=== PATIENT | male | born 1970 | race Caucasian/White ===

== ENCOUNTER → 2017-06-12 | Outpatient (CLI) | payer BC ==
--- NOTE | 2017-06-12 11:48 | RAD ---
Examination: Chest, PA and lateral views History: SOB, hypertension Findings: Normal heart size, mild aortic dilatation, clear lungs and pleural spaces. There is no evid ence for CHF or pneumonia. Impression: No acute disease. Relative prominence of the thoracic aorta for age is consistent with hy pertension history. Reported By:
== END ==
LOC: RAD 11:08
PROVIDERS: ATTEND Nurse Practitioner Family
DX: R06.02 Shortness of breath (principal)
CPT/HCPCS: 71020

== ENCOUNTER → 2017-07-02 | Outpatient (CLI) | payer BC ==
[~2017-07-02] MED LIST: NS 100 ML IV 100 ML IV ONE
--- NOTE | 2017-07-04 11:03 | CT ---
HISTORY: Wheezing, shortness of breath, cough Study: CT chest with IV contrast Comparison: Chest x-ray done 06/12/2017. Technique: Multiple axial images of the chest were obtained from the thoracic inlet to the upper abdo men during the administration of IV contrast. Coronal and sagittal images are also reviewed. Findings: The mediastinum does not demonstrate significant pathological lymphadenopathy. There is no pericardi al effusion observed. The thoracic aorta is normal in its contour without evidence for aneurysmal di latation. There is mild ectasia of the ascending aorta which measures 4.09 cm in AP diameter. This is likely to hypertension. The central pulmonary arterial system does not demonstrate central filling d efects to suggest pulmonary emboli. Evaluation of the lung parenchyma fails to demonstrate focal consolidation or effusion. No pulmonary nodule or mass can be identified. The bony thorax is unremarkable in its appearance. The visualize d portions of the upper abdomen are grossly unremarkable. IMPRESSION: Mild ectasia of the ascending aorta, likely due to hypertension. No evidence of aneurysm is seen. No pulmonary embolus. No evidence of infiltrate, adenopathy, pleural fluid or pulmonary nodule. Reported By:
== END | disposition home or self-care (01) | DRG 204 ==
LOC: RAD 09:08
PROVIDERS: ATTEND Nurse Practitioner Family
DX: R05 Cough (principal); I77.819 Aortic ectasia, unspecified site
CPT/HCPCS: 71260; A4222

== ENCOUNTER 2017-07-10 14:05 | Inpatient (IN) | payer BC ==
--- NOTE | 2017-07-10 14:25 | DR.GENAD ---
HPI - PCP Primary Care Physician: TAMARA - HPI Comment HPI Comment: SYMTOMS GETTING WORSE. NO FEVER. MILD COUGHING AND CHEST PAIN PRESENT. - Complaint/Symptoms Chief Complaint Doctors Comments: INCREASING SOB AND FATIGUE WITH OXYGEN DESATURATION TIMES FEW WEEKS. Chief Complaint:: SOB,COUGH, WHEEZING, CP Self Treatment fo Chief Complaint: WORSENING THIS WEEK - Nurses notes reviewed Nurses Notes Review: Yes - Source History Provided: Patient - Mode of Arrival Mode of Arrival: Ambulatory - Timing Onset of Chief Complaint: 04/11/17 Came on: Suddenly - Duration Duration: Constant Duration: Weeks - Severity Severity: Moderate PMH - PMH Past Medical History: Yes Past Medical History: Hypertension Past Surgical History: No - Family History History of Family Medical Conditions: Yes Family Medical History: Hypertension - Social History Does patient currently use any type of tobacco product: No Have you used tobacco products in the last 12 months: No Type of Tobacco Use: None Does any household member use tobacco: No Alcohol Use: Rarely Do you use any recreational Drugs:: No Lives With: Family Lives Where: Home - infectious screening In the last 2 months have you had wt loss of >10#?: NO Have you had fever, night sweats or hemotysis?: No Have you traveled outside the country in the last 6 months?: No Isolation: Standard ROS - Review of Systems Constitutional: Weakness, Fatigue. negative: Chills, Fever Eyes: No Symptoms Reported. negative: Eye Pain, Discharge ENTM: Nose Congestion. negative: Ear Pain, Nose Discharge, Throat Pain Respiratoy: Non-Productive Cough, Short of Breath, Wheezing. negative: Hemoptysis Cardiovascular: Chest Pain, Edema Gastrointestinal/Abdominal: No Symptoms Reported. negative: Abdominal Pain, Diarrhea, Nausea, Vomiting Genitourinary: negative: Dysuria, Frequency, Hematuria Neurological: Weakness, Dizziness. negative: Headache Musculoskeletal: Back Pain, Muscle Pain Integumentary: No Symptoms Reported Hematologic/Lymphatic: No Symptoms Reported Endocrine: No Symptoms Reported All Other Systems: Reviewed and Negative PE - Vital Signs Vitals: Temperature 98.4 F Pulse Rate [Right Brachial] 103 Pulse Rate 105 Respiratory Rate 20 Blood Pressure [Left Arm] 153/93 Blood Pressure 163/99 O2 Sat by Pulse Oximetry 94 - General Limitations: No Limitations General Appearance: Alert - Head Head Exam: Normal Inspection - Eyes Eye exam: Normal Appearance - ENT ENT Exam: Normal External Ear Exam External Ear Exam: Normal External Inspection TM/Canal Exam: Bilateral Normal Nose Exam: Normal Nose Exam Mouth Exam: Normal Inspection Throat Exam: Normal Inspection - Neck Neck Exam: Trachea Midline - Chest Chest Inspection: Symmetric Chest Wall Rise - Respiratory Respiratory Exam: Respiratory Distress Respiratory Exam: Bilateral Wheezing, Bilateral Rhonchi, Upper Wheezing, Upper Rhonchi, Lower Wheezing, Lower Rhonchi - Cardiovascular Cardiovascular Exam: Regular Rate, Normal Rhythm - Abdominal Exam Abdominal Exam: Normal Inspection, Normal Bowel Sounds. negative: Tenderness - Extremities Extremities Exam: Edema - Back Back Exam: Normal Inspection - Neurologic Neurological Exam: Alert, Oriented X3 - Psychiatric Psychiatric Exam: Normal Affect, Normal Mood - Skin Skin Exam: Normal Color MDM - Additional Information Additional Information Obtained From: Family - Differential Diagnosis Differential Diagnosis: CHF, PNEUMONIA, HYOXIA, CHEST PAIN, Course - Treatment Treatment: SEE ORDERS. - Education/Counseling Education/Counseling: Patient, Family, Education Educated On: Treatment, Diagnosis, Needs for Follow Up ROR - Labs Reviewed Laboratory Results Reviewed?: Yes Result Diagrams: 07/11/17 05:10 07/11/17 05:10 Laboratory: 07/10/17 17:43 Sputum - Expectorated Sputum Sputum Culture - Final 07/10/17 17:43 Sputum - Expectorated Sputum - Final WBC 7.8 X10^3/uL (3.6-10.0) 07/11/17 05:10 RBC 5.00 X10^6/uL (4.7-6.0) 07/11/17 05:10 Hgb 15.1 g/dL (13.5-18.0) 07/11/17 05:10 Hct 43.7 % (42.0-54.0) 07/11/17 05:10 MCV 87.3 fL (80.0-100.0) 07/11/17 05:10 MCH 30.1 pg (27.0-34.0) 07/11/17 05:10 MCHC 34.4 g/dL (33.0-35.0) 07/11/17 05:10 RDW 13.7 % (11.6-16.5) 07/11/17 05:10 Plt Count 320 X10^3/uL (150.0-450.0) 07/11/17 05:10 MPV 7.6 fL (7.4-11.0) 07/11/17 05:10 Neut % 89.7 % (42.0-75.0) H 07/11/17 05:10 Lymph % 9.1 % (21.0-51.0) L 07/11/17 05:10 Bartholomew % 1.1 % (0.0-13.0) 07/11/17 05:10 Eos % 0.0 % (0.9-2.9) L 07/11/17 05:10 Baso % 0.1 % (0.2-1.0) L 07/11/17 05:10 Neut # 7.0 x10^3/uL (2.2-4.8) H 07/11/17 05:10 Lymph # 0.7 X10^3/uL (1.3-2.9) L 07/11/17 05:10 Bartholomew # 0.1 x10^3/uL (0.3-0.8) L 07/11/17 05:10 Eos # 0.0 x10^3/uL (0.0-0.2) 07/11/17 05:10 Baso # 0.0 X10^3/uL (0.0-0.1) 07/11/17 05:10 Absolute Nucleated RBC 0.0 /100WBC 07/11/17 05:10 D-Dimer < 100 ng/mL (0-400) 07/10/17 14:37 Sample Site Lr 07/10/17 16:01 ABG pH 7.420 (7.35-7.45) 07/10/17 16:01 ABG pCO2 43.0 mmHg (35.0-45.0) 07/10/17 16:01 ABG pO2 58.0 mmHg (80.0-100.0) L 07/10/17 16:01 ABG HCO3 27.9 mmol/L (22-26) H 07/10/17 16:01 ABG O2 Saturation 90.0 % (90-100) 07/10/17 16:01 ABG Base Excess 3.0 mmol/L (-2.0-2.0) H 07/10/17 16:01 Jorge Test Pos 07/10/17 16:01 A-a Gradient 38.0 mmHg 07/10/17 16:01 FiO2 21.000 07/10/17 16:01 Blood Gas Comments Pt [email or web address] [email or web address]/gb 07/10/17 16:01 Sodium 137 mmol/L (136-145) 07/11/17 05:10 Corrected Sodium 138 mmol/L (136-145) 07/11/17 05:10 Potassium 4.0 mmol/L (3.5-5.1) 07/11/17 05:10 Chloride 101 mmol/L (98-107) 07/11/17 05:10 Carbon Dioxide 23.4 mmol/L (21-32) 07/11/17 05:10 BUN 12 mg/dL (7-18) 07/11/17 05:10 Creatinine 0.92 mg/dL (0.70-1.30) 07/11/17 05:10 Est GFR (MDRD) Af Amer > 60 (>60) 07/11/17 05:10 Est GFR (MDRD) Non-Af > 60 (>60) 07/11/17 05:10 Glucose 142 mg/dL (65-99) H 07/11/17 05:10 Calcium 8.9 mg/dL (8.5-10.1) 07/11/17 05:10 Corrected Calcium TNP 07/11/17 05:10 Total Bilirubin 0.30 mg/dL (0.2-1.0) 07/11/17 05:10 AST 17 Units/L (15-37) 07/11/17 05:10 ALT 40 Units/L (12-78) 07/11/17 05:10 Alkaline Phosphatase 110 Units/L (46-116) 07/11/17 05:10 Creatine Kinase 88 Units/L (39-308) 07/11/17 05:10 CK-MB (CK-2) < 1.0 ng/mL (0-4.0) 07/11/17 05:10 CK/CKMB % Calc 1.1 % (<4) 07/11/17 05:10 Troponin I < 0.02 ng/mL (0-1.5) 07/11/17 05:10 B-Natriuretic Peptide 7.3 pg/mL (0-79) 07/10/17 14:37 Total Protein 7.5 g/dL (6.4-8.2) 07/11/17 05:10 Albumin 3.4 g/dL (3.4-5.0) 07/11/17 05:10 Globulin 4.1 g/dL (2.5-4.5) 07/11/17 05:10 Albumin/Globulin Ratio 0.8 Ratio (1.1-2.1) L 07/11/17 05:10 Triglycerides 44 mg/dL (0-150) 07/11/17 05:10 Cholesterol 172 mg/dL (0-200) 07/11/17 05:10 LDL Cholesterol, Calc 100 mg/dL (0-100) 07/11/17 05:10 HDL Cholesterol 63 mg/dL (40-60) H 07/11/17 05:10 Cholesterol/HDL Ratio 2.7 (0.0-5.0) 07/11/17 05:10 Amylase 54 Units/L (25-115) 07/10/17 14:37 Lipase 143 Units/L (73-393) 07/10/17 14:37 Specimen Type Clean catch urine 07/10/17 19:34 Urine Color Yellow (YELLOW) 07/10/17 19:34 Urine Appearance Clear (CLEAR) 07/10/17 19:34 Urine pH 7.0 (5.0 - 8.0) 07/10/17 19:34 Ur Specific [place] 1.005 (1.000-1.030) 07/10/17 19:34 Urine Protein 1+ (NEGATIVE) 07/10/17 19:34 Urine Glucose (UA) Negative (NEGATIVE) 07/10/17 19:34 Urine Ketones 2+ (NEGATIVE) 07/10/17 19:34 Urine Occult Blood Negative (NEGATIVE) 07/10/17 19:34 Urine Nitrite Negative (NEGATIVE) 07/10/17 19:34 Urine Bilirubin Negative (NEGATIVE) 07/10/17 19:34 Urine Urobilinogen Normal (NORMAL) 07/10/17 19:34 Ur Leukocyte Esterase Negative (NEGATIVE) 07/10/17 19:34 Urine RBC 0-3 /HPF (NEGATIVE) 07/10/17 19:34 Urine WBC 0-3 /HPF (NEGATIVE) 07/10/17 19:34 Ur Squamous Epith Cells Rare /HPF (NEGATIVE) 07/10/17 19:34 Urine Bacteria Negative /HPF (NEGATIVE) 07/10/17 19:34 Ur Culture Indicated? No/not indicated 07/10/17 19:34 - XRAY XRAY Interpreted by: Radiologist XRAY Findings: REPORT DISCUSS WITH PATIENT AND FAMILY. - EKG Rhythm: NSR (EKG NOTED.) - Diagnosis Discharge Problem: Hypoxia, Respiratory distress Chest pain Qualifiers: Chest pain type: precordial pain Qualified Code(s): R07.2 - Precordial pain - Discharge Plan Disposition: ADMITTED INPATIENT Condition: Stable - Follow ups/Referrals - Instructions
[2017-07-10] MEDS ORDERED: NITROSTAT SL PRN (14:40)
[2017-07-10] MEDS ORDERED: MORPHINE SULFATE INJ 4 MG IVP ONE (14:40)
[2017-07-10] MEDS ORDERED: ASPIRIN 81 MG CHEWTAB PO ONE (14:41)
[2017-07-10] MEDS ORDERED: ZOFRAN INJ 4 MG VIAL IVP ONE (14:42)
--- NOTE | 2017-07-10 14:47 | RAD ---
Examination: Portable AP chest History: SOB Comparison reference 06/12/2017. Findings: Continued normal heart size with clear lungs and pleural spaces. Impression: No change; no acute disease. Reported By:
[2017-07-10 14:51] LABS: BASOPHILS # (AUTO) 0.1 X10^3/uL (0.0-0.1); EOSINOPHILS # (AUTO) 0.9 x10^3/uL (0.0-0.2); EOSINOPHILS % (AUTO) 8.2 % (0.9-2.9); HEMATOCRIT 43.9 % (42.0-54.0); HEMOGLOBIN 15.1 g/dL (13.5-18.0); LYMPHOCYTES # (AUTO) 1.7 X10^3/uL (1.3-2.9); LYMPHOCYTES % (AUTO) 16.2 % (21.0-51.0); MEAN CORPUSCULAR HGB CONC 34.5 g/dL (33.0-35.0); MEAN CORPUSCULAR VOLUME 87.1 fL (80.0-100.0); MEAN PLATELET VOLUME 7.2 fL (7.4-11.0); MONOCYTES # (AUTO) 1.1 x10^3/uL (0.3-0.8); MONOCYTES % (AUTO) 10.5 % (0.0-13.0); NEUTROPHILS # (AUTO) 6.8 x10^3/uL (2.2-4.8); NEUTROPHILS % (AUTO) 64.1 % (42.0-75.0); PLATELET COUNT 323 X10^3/uL (150.0-450.0); RED BLOOD COUNT 5.05 X10^6/uL (4.7-6.0); WHITE BLOOD COUNT 10.6 X10^3/uL (3.6-10.0)
[2017-07-10] MEDS ORDERED: DUONEB 0.5 MG/3 MG NEB ONE (14:56)
[2017-07-10] MEDS ORDERED: SOLU-Medrol 125 MG VIAL IVP ONE (14:56)
[2017-07-10] MEDS ORDERED: ASPIRIN 81 MG CHEWTAB ONE (15:11)
[2017-07-10] MEDS ORDERED: SOLU-Medrol 125 MG VIAL ONE (15:11)
[2017-07-10 15:12] LABS: B-TYPE NATRIURETIC PEPTIDE 7.3 pg/mL (0-79)
[2017-07-10] MEDS ORDERED: MORPHINE SULFATE INJ 4 MG ONE (15:12)
[2017-07-10] MEDS ORDERED: ZOFRAN INJ 4 MG VIAL ONE (15:13)
[2017-07-10 15:17] LABS: BLOOD UREA NITROGEN 11 mg/dL (7-18); CALCIUM 8.5 mg/dL (8.5-10.1); CARBON DIOXIDE 25.3 mmol/L (21-32); CHLORIDE 103 mmol/L (98-107); SODIUM 137 mmol/L (136-145); TROPONIN I < 0.02 ng/mL (0-1.5); eGFR BLACK RACES > 60 (>60); eGFR NON BLACK RACES > 60 (>60)
[2017-07-10 15:31] LABS: ALANINE AMINOTRANSFERASE 43 Units/L (12-78); ALBUMIN 3.4 g/dL (3.4-5.0); ALKALINE PHOSPHATASE 113 Units/L (46-116); AMYLASE 54 Units/L (25-115); ASPARTATE AMINO TRANSFERASE 23 Units/L (15-37); CKMB % 0.8 % (<4); CREATINE KINASE 140 Units/L (39-308); CREATINE KINASE MB 1.1 ng/mL (0-4.0); LIPASE 143 Units/L (73-393); TOTAL PROTEIN 7.3 g/dL (6.4-8.2)
[2017-07-10 16:06] LABS: ABG ALLEN TEST POS; ABG HCO3 27.9 mmol/L (22-26)
[2017-07-10] MEDS ORDERED: NS 100 ML IV 100 ML IV ONE (17:36)
[2017-07-10 17:38] LABS: CKMB % 0.9 % (<4); CREATINE KINASE 143 Units/L (39-308); CREATINE KINASE MB 1.3 ng/mL (0-4.0); TROPONIN I < 0.02 ng/mL (0-1.5)
--- NOTE | 2017-07-10 18:10 | CT ---
History: Shortness of breath and hypoxia Study: CTA chest utilizing 75 mL Omnipaque 350. Sagittal and coronal MIPS of the pulmonary arteries w ere displayed. Findings: The lungs are clear. There is no pleural effusion. No pulmonary embolus is demonstrated. Th ere is no adenopathy. There is elevation of the left hemidiaphragm. There is no significant bony abno rmality. The visualized upper abdomen is unremarkable. Impression: No evidence for pulmonary embolus or acute disease Reported By:
[2017-07-10 19:42] LABS: BILIRUBIN,URINE NEGATIVE (NEGATIVE); BLOOD/HEMOGLOBIN,URINE NEGATIVE (NEGATIVE); GLUCOSE, URINE NEGATIVE (NEGATIVE); KETONES,URINE 2+ (NEGATIVE); LEUKOCYTE ESTERASE ,URINE NEGATIVE (NEGATIVE); NITRITES,URINE NEGATIVE (NEGATIVE); PROTEIN,URINE 1+ (NEGATIVE); UROBILINOGEN,URINE NORMAL (NORMAL)
[2017-07-10 19:56] LABS: APPEARANCE,URINE CLEAR (CLEAR); BACTERIA,URINE NEGATIVE /HPF (NEGATIVE); COLOR,URINE YELLOW (YELLOW); RBC,URINE 0-3 /HPF (NEGATIVE); SQUAMOUS EPITHELIAL CELL,UR RARE /HPF (NEGATIVE)
[2017-07-10 20:18] VITALS: BMI 32.4
[2017-07-10] MEDS ORDERED: FLUVIRIN IM ONE (20:18)
[2017-07-10] MEDS: LEVAQUIN PREMIX IV 500 MG 500 MG/100 ML BAG IV SCH (21:12)
[2017-07-10] MEDS: SOLU-Medrol 40 MG VIAL IVP SCH (21:12)
[2017-07-10] MEDS: NS 1000 ML 1,000 ML IV SCH (21:12)
[2017-07-10] MEDS: DUONEB 0.5 MG/3 MG NEB SCH (21:18)
[2017-07-10 23:37] LABS: CKMB % 0.9 % (<4); CREATINE KINASE 118 Units/L (39-308); CREATINE KINASE MB < 1.0 ng/mL (0-4.0); TROPONIN I < 0.02 ng/mL (0-1.5)
[2017-07-11] MEDS: DUONEB 0.5 MG/3 MG NEB SCH ×6 (01:06→21:43)
[2017-07-11] MEDS: SOLU-Medrol 40 MG VIAL IVP SCH ×3 (06:32→21:34)
[2017-07-11 06:34] LABS: BASOPHILS % (AUTO) 0.1 % (0.2-1.0); HEMATOCRIT 43.7 % (42.0-54.0); HEMOGLOBIN 15.1 g/dL (13.5-18.0); LYMPHOCYTES # (AUTO) 0.7 X10^3/uL (1.3-2.9); LYMPHOCYTES % (AUTO) 9.1 % (21.0-51.0); MEAN CORPUSCULAR HEMOGLOBIN 30.1 pg (27.0-34.0); MEAN CORPUSCULAR HGB CONC 34.4 g/dL (33.0-35.0); MEAN CORPUSCULAR VOLUME 87.3 fL (80.0-100.0); MEAN PLATELET VOLUME 7.6 fL (7.4-11.0); MONOCYTES # (AUTO) 0.1 x10^3/uL (0.3-0.8); MONOCYTES % (AUTO) 1.1 % (0.0-13.0); NEUTROPHILS % (AUTO) 89.7 % (42.0-75.0); PLATELET COUNT 320 X10^3/uL (150.0-450.0); RED CELL DISTRIBUTION WIDTH 13.7 % (11.6-16.5); WHITE BLOOD COUNT 7.8 X10^3/uL (3.6-10.0)
[2017-07-11 06:44] LABS: CKMB % 1.1 % (<4); CREATINE KINASE 88 Units/L (39-308); CREATINE KINASE MB < 1.0 ng/mL (0-4.0); TROPONIN I < 0.02 ng/mL (0-1.5)
[2017-07-11 07:43] LABS: ALANINE AMINOTRANSFERASE 40 Units/L (12-78); ALBUMIN 3.4 g/dL (3.4-5.0); ALKALINE PHOSPHATASE 110 Units/L (46-116); ASPARTATE AMINO TRANSFERASE 17 Units/L (15-37); BLOOD UREA NITROGEN 12 mg/dL (7-18); CALCIUM 8.9 mg/dL (8.5-10.1); CARBON DIOXIDE 23.4 mmol/L (21-32); CHLORIDE 101 mmol/L (98-107); CHOL/HDL RATIO 2.7 (0.0-5.0); CHOLESTEROL 172 mg/dL (0-200); COR NA(FOR HYPERGLY) 138 mmol/L (136-145); CREATININE 0.92 mg/dL (0.70-1.30); HDL CHOLESTEROL 63 mg/dL (40-60); SODIUM 137 mmol/L (136-145); TOTAL PROTEIN 7.5 g/dL (6.4-8.2); TRIGLYCERIDES 44 mg/dL (0-150); eGFR BLACK RACES > 60 (>60); eGFR NON BLACK RACES > 60 (>60)
[2017-07-11] MEDS: NS 1000 ML 1,000 ML IV SCH ×2 (08:20→21:39)
[2017-07-11] MEDS: LEVAQUIN PREMIX IV 500 MG 500 MG/100 ML BAG IV SCH (10:01)
[2017-07-11] MEDS: BROVANA IN SCH ×2 (10:52→21:43)
[2017-07-11] MEDS: PULMICORT NEB TX 0.5 MG NEB SCH ×2 (10:53→21:43)
[2017-07-11] MEDS: PEPCID 20 MG IV PREMIX* 20 MG/50 ML BAG IV SCH ×2 (11:56→21:34)
[2017-07-11] MEDS ORDERED: TUSSIONEX PENNKINETIC SUSP PO PRN (13:49)
--- NOTE | 2017-07-11 13:54 | DR.H&P ---
H&P - History & Physical for Day of: H&P Date: 07/10/17 - Chief Complaint Chief Complaint: CP,SOB - Allergies Allergies/Adverse Reactions: Allergies Allergy/AdvReac Type Severity Reaction Status Date / Time Cephalosporins Allergy Severe ANAPHALEXIS Verified 07/10/17 14:06 REACTION - History of Present Illness History of Present Illness: PATIENT IS A 47-YEAR-OLD WHITE MALE WHO WAS AN er ADMISSION AFTER PRESENTING WITH COMPLAINTS OF CHEST PAIN AND SEVERE SHORTNESS OF BREATH. pATIENT STATES HE'S HAD INCREASED COUGH CHEST CONGESTION AND WHEEZING ON AND OFF FOR APPROXIMATELY THE LAST 2 MONTHS. pATIENT STATES HE HAS TAKEN MULTIPLE ROUNDS OF ANTIBIOTICS, BY MOUTH STEROIDS WELL STEROID INJECTIONS AND ANTIBIOTIC INJECTIONS WITHOUT IMPROVEMENT. pATIENT HAD A CHEST X -RAY WELL A ct OF THE CHEST PRIOR TO ARRIVAL TO THE er ON OUTPATIENT BASIS ct REVEALED AN ENLARGED AORTA HOWEVER NEGATIVE FOR ANY PULMONARY DISEASE PROCESSES. pATIENT STATES HE'S BEEN USING RESPIRATORY TREATMENTS AT HOME WELL sYMBICORT INHALER WITHOUT IMPROVEMENT. pATIENT STATES PRESSURE TO CHEST STARTED OVER THE LAST 1-2 DAYS AND BECAME MORE SEVERE. pATIENT DENIES ANY HISTORY OF CORONARY ARTERY DISEASE. pATIENT DOES HAVE A HISTORY OF HYPERTENSION. pATIENT DENIES ANY PAST MEDICAL HISTORY OF ASTHMA OR copd. pATIENT HAS A HISTORY OF gerd AND HAS BEEN ON nEXIUM FOR SEVERAL YEARS WITH NO COMPLAINTS OF RECENT INCREASED. gi SYMPTOMS. pLAN TO ADMIT PATIENT FOR FURTHER EVALUATION OFcHEST PAIN AND RESPIRATORY SYMPTOMS, SERIAL CARDIAC ENZYMES AND ekgS WELL cta OF THE CHEST PRIOR TO ADMISSION TO icu. - Past Medical History Past Medical History: GERD, Hypertension - Past Surgical History Surgical History: Tonsillectomy - Family History Family Medical History: Hypertension - Social History Does patient currently use any type of tobacco product: No Have you used tobacco products in the last 12 months: No Type of Tobacco Use: None Does any household member use tobacco: No Alcohol Use: Rarely Drug Use: None - Medications Home Medications: Albuterol Neb 2.5MG/ 3Ml [Proventil Neb Tx 0.083% 2.5MG/ 3Ml] 1 nebule INH TID PRN 07/10/17 [History Confirmed 07/10/17] Amlodipine Besylate [NORVASC 5 MG *] 1 tab PO DAILY 07/10/17 [History Confirmed 07/10/17] Budesonide-Formoterol [SYMBICORT INH 160/4.5 mcg] 2 puff IN Q12H 07/10/17 [ History Confirmed 07/10/17] Esomeprazole Magnesium [NEXIUM 40 MG *] 1 tab PO DAILY 07/10/17 [History Confirmed 07/10/17] Losartan Potassium [LOSARTAN POTASSIUM 50 MG *] 1 tab PO DAILY 07/10/17 [ History Confirmed 07/10/17] - Review of Systems Constitutional: Weakness Eyes: No Symptoms Reported ENT: No Symptoms Reported Respiratory: Cough, Shortness of Breath, SOB with Excertion, Wheezing Cardiovascular: Chest Pain, Palpitations Gastrointestinal: No Symptoms Reported Genitourinary: No Symptoms Reported Musculoskeletal: No Symptoms Reported Skin: No Symptoms Reported Neurological: No Symptoms Reported - Physical Exam Vital Signs: Temperature 98.2 F Pulse Rate [Right Brachial] 127 Pulse Rate 108 Respiratory Rate 23 Blood Pressure [Left Arm] 155/81 Blood Pressure 163/99 O2 Sat by Pulse Oximetry 93 Oriented: Normal Eyes: Normal Ear: Normal Nose: Normal Throat: Normal Respiratory: Wheezes Throughout Cardiovascular: Tachycardia : Normal Auscultation: Bowel Sounds: Normal Palpation: Normal Tenderness: Normal Skin: Normal Musculoskeletal: Normal Psychiatric: Normal Mood Description: Calm Speech Pattern: Clear, Appropriate - Assessment/Plan (1) Chest pain Qualifiers: Chest pain type: precordial pain Qualified Code(s): R07.2 - Precordial pain Status: Acute Plan: admit patient to ICU, supplemental O2, serial cardiac enzymes and EKGs, resume home medications for blood pressure control, blood pressure monitoring, respiratory consult with with sputum and respiratory treatments, repeat a.m. labs, IV antibiotics and steroids. (2) Hypoxia Status: Acute (3) Respiratory distress Status: Acute
[2017-07-11] MEDS: NORVASC TAB 5 MG PO SCH (13:57)
[2017-07-11] MEDS: NexIUM PO SCH (13:57)
[2017-07-11] MEDS: COZAAR PO SCH (13:57)
--- NOTE | 2017-07-11 13:57 | PCM.PROG ---
Progress Note - Progress Note for Day of Date: 07/11/17 - Subjective Subjective: SOB, CHEST PAIN - Past Medical Family Social History Past Med/Fam/Surg Hx: No changes since H&P Allergies: Allergies Cephalosporins Allergy (Severe, Verified 07/10/17 14:06) ANAPHALEXIS REACTION - Review of Systems ROS: No change since H&P - Vital Signs and I&O's Vital Signs: Temperature 98.2 F Pulse Rate [Right Brachial] 127 Pulse Rate 108 Respiratory Rate 23 Blood Pressure [Left Arm] 155/81 Blood Pressure 163/99 O2 Sat by Pulse Oximetry 93 Intake and Output: Intake & Output 07/09/17 07/10/17 07/11/17 07/12/17 11:59 11:59 11:59 11:59 Intake Total 330 Output Total 1 Balance 329 - Physical Exam Oriented: Normal Eyes: Normal Ear: Normal Nose: Normal Throat: Normal Respiratory: Wheezes Cardiovascular: Tachycardia : Normal Auscultation: Bowel Sounds: Normal Tenderness: Normal Skin: Normal Musculoskeletal: Normal Psychiatric: Normal Mood Description: Calm Speech Pattern: Clear, Appropriate - Laboratory and Diagnostics Result Diagrams: 07/11/17 05:10 07/11/17 05:10 Labs: 07/10/17 22:22 Sputum - Expectorated Sputum Sputum Culture - Preliminary 07/10/17 22:22 Sputum - Expectorated Sputum - Final 07/10/17 17:43 Sputum - Expectorated Sputum Sputum Culture - Final 07/10/17 17:43 Sputum - Expectorated Sputum - Final Laboratory WBC 7.8 X10^3/uL (3.6-10.0) 07/11/17 05:10 RBC 5.00 X10^6/uL (4.7-6.0) 07/11/17 05:10 Hgb 15.1 g/dL (13.5-18.0) 07/11/17 05:10 Hct 43.7 % (42.0-54.0) 07/11/17 05:10 MCV 87.3 fL (80.0-100.0) 07/11/17 05:10 MCH 30.1 pg (27.0-34.0) 07/11/17 05:10 MCHC 34.4 g/dL (33.0-35.0) 07/11/17 05:10 RDW 13.7 % (11.6-16.5) 07/11/17 05:10 Plt Count 320 X10^3/uL (150.0-450.0) 07/11/17 05:10 MPV 7.6 fL (7.4-11.0) 07/11/17 05:10 Neut % 89.7 % (42.0-75.0) H 07/11/17 05:10 Lymph % 9.1 % (21.0-51.0) L 07/11/17 05:10 Hubbard % 1.1 % (0.0-13.0) 07/11/17 05:10 Eos % 0.0 % (0.9-2.9) L 07/11/17 05:10 Baso % 0.1 % (0.2-1.0) L 07/11/17 05:10 Neut # 7.0 x10^3/uL (2.2-4.8) H 07/11/17 05:10 Lymph # 0.7 X10^3/uL (1.3-2.9) L 07/11/17 05:10 Hubbard # 0.1 x10^3/uL (0.3-0.8) L 07/11/17 05:10 Eos # 0.0 x10^3/uL (0.0-0.2) 07/11/17 05:10 Baso # 0.0 X10^3/uL (0.0-0.1) 07/11/17 05:10 Absolute Nucleated RBC 0.0 /100WBC 07/11/17 05:10 D-Dimer < 100 ng/mL (0-400) 07/10/17 14:37 Sample Site Lr 07/10/17 16:01 ABG pH 7.420 (7.35-7.45) 07/10/17 16:01 ABG pCO2 43.0 mmHg (35.0-45.0) 07/10/17 16:01 ABG pO2 58.0 mmHg (80.0-100.0) L 07/10/17 16:01 ABG HCO3 27.9 mmol/L (22-26) H 07/10/17 16:01 ABG O2 Saturation 90.0 % (90-100) 07/10/17 16:01 ABG Base Excess 3.0 mmol/L (-2.0-2.0) H 07/10/17 16:01 Jorge Test Pos 07/10/17 16:01 A-a Gradient 38.0 mmHg 07/10/17 16:01 FiO2 21.000 07/10/17 16:01 Blood Gas Comments Pt [place] [email or web address]/gb 07/10/17 16:01 Sodium 137 mmol/L (136-145) 07/11/17 05:10 Corrected Sodium 138 mmol/L (136-145) 07/11/17 05:10 Potassium 4.0 mmol/L (3.5-5.1) 07/11/17 05:10 Chloride 101 mmol/L (98-107) 07/11/17 05:10 Carbon Dioxide 23.4 mmol/L (21-32) 07/11/17 05:10 BUN 12 mg/dL (7-18) 07/11/17 05:10 Creatinine 0.92 mg/dL (0.70-1.30) 07/11/17 05:10 Est GFR (MDRD) Af Amer > 60 (>60) 07/11/17 05:10 Est GFR (MDRD) Non-Af > 60 (>60) 07/11/17 05:10 Glucose 142 mg/dL (65-99) H 07/11/17 05:10 Calcium 8.9 mg/dL (8.5-10.1) 07/11/17 05:10 Corrected Calcium TNP 07/11/17 05:10 Total Bilirubin 0.30 mg/dL (0.2-1.0) 07/11/17 05:10 AST 17 Units/L (15-37) 07/11/17 05:10 ALT 40 Units/L (12-78) 07/11/17 05:10 Alkaline Phosphatase 110 Units/L (46-116) 07/11/17 05:10 Creatine Kinase 88 Units/L (39-308) 07/11/17 05:10 CK-MB (CK-2) < 1.0 ng/mL (0-4.0) 07/11/17 05:10 CK/CKMB % Calc 1.1 % (<4) 07/11/17 05:10 Troponin I < 0.02 ng/mL (0-1.5) 07/11/17 05:10 B-Natriuretic Peptide 7.3 pg/mL (0-79) 07/10/17 14:37 Total Protein 7.5 g/dL (6.4-8.2) 07/11/17 05:10 Albumin 3.4 g/dL (3.4-5.0) 07/11/17 05:10 Globulin 4.1 g/dL (2.5-4.5) 07/11/17 05:10 Albumin/Globulin Ratio 0.8 Ratio (1.1-2.1) L 07/11/17 05:10 Triglycerides 44 mg/dL (0-150) 07/11/17 05:10 Cholesterol 172 mg/dL (0-200) 07/11/17 05:10 LDL Cholesterol, Calc 100 mg/dL (0-100) 07/11/17 05:10 HDL Cholesterol 63 mg/dL (40-60) H 07/11/17 05:10 Cholesterol/HDL Ratio 2.7 (0.0-5.0) 07/11/17 05:10 Amylase 54 Units/L (25-115) 07/10/17 14:37 Lipase 143 Units/L (73-393) 07/10/17 14:37 Specimen Type Clean catch urine 07/10/17 19:34 Urine Color Yellow (YELLOW) 07/10/17 19:34 Urine Appearance Clear (CLEAR) 07/10/17 19:34 Urine pH 7.0 (5.0 - 8.0) 07/10/17 19:34 Ur Specific [place] 1.005 (1.000-1.030) 07/10/17 19:34 Urine Protein 1+ (NEGATIVE) 07/10/17 19:34 Urine Glucose (UA) Negative (NEGATIVE) 07/10/17 19:34 Urine Ketones 2+ (NEGATIVE) 07/10/17 19:34 Urine Occult Blood Negative (NEGATIVE) 07/10/17 19:34 Urine Nitrite Negative (NEGATIVE) 07/10/17 19:34 Urine Bilirubin Negative (NEGATIVE) 07/10/17 19:34 Urine Urobilinogen Normal (NORMAL) 07/10/17 19:34 Ur Leukocyte Esterase Negative (NEGATIVE) 07/10/17 19:34 Urine RBC 0-3 /HPF (NEGATIVE) 07/10/17 19:34 Urine WBC 0-3 /HPF (NEGATIVE) 07/10/17 19:34 Ur Squamous Epith Cells Rare /HPF (NEGATIVE) 07/10/17 19:34 Urine Bacteria Negative /HPF (NEGATIVE) 07/10/17 19:34 Ur Culture Indicated? No/not indicated 07/10/17 19:34 - Plan (1) Chest pain Status: Acute Qualifiers: Chest pain type: precordial pain Qualified Code(s): R07.2 - Precordial pain Plan: supplemental O2, serial cardiac enzymes and EKG results reviewed with pt and family, resume home medications for blood pressure control, blood pressure monitoring,continue resp therapy, repeat am labs. jet nebs and cxr q am (2) Hypoxia Status: Acute (3) Respiratory distress Status: Acute (4) Bronchitis Status: Acute
[2017-07-12] MEDS: DUONEB 0.5 MG/3 MG NEB SCH ×5 (01:22→16:53)
[2017-07-12] MEDS: SOLU-Medrol 40 MG VIAL IVP SCH ×2 (05:18→14:16)
[2017-07-12 06:02] LABS: BASOPHILS % (AUTO) 0.1 % (0.2-1.0); HEMATOCRIT 41.7 % (42.0-54.0); HEMOGLOBIN 14.3 g/dL (13.5-18.0); LYMPHOCYTES # (AUTO) 0.7 X10^3/uL (1.3-2.9); LYMPHOCYTES % (AUTO) 2.8 % (21.0-51.0); MEAN CORPUSCULAR HEMOGLOBIN 30.1 pg (27.0-34.0); MEAN CORPUSCULAR HGB CONC 34.2 g/dL (33.0-35.0); MEAN PLATELET VOLUME 7.8 fL (7.4-11.0); MONOCYTES % (AUTO) 4.2 % (0.0-13.0); NEUTROPHILS # (AUTO) 23.1 x10^3/uL (2.2-4.8); NEUTROPHILS % (AUTO) 92.9 % (42.0-75.0); PLATELET COUNT 333 X10^3/uL (150.0-450.0); RED BLOOD COUNT 4.74 X10^6/uL (4.7-6.0); WHITE BLOOD COUNT 24.9 X10^3/uL (3.6-10.0)
[2017-07-12 06:27] LABS: ALANINE AMINOTRANSFERASE 31 Units/L (12-78); ALBUMIN 3.2 g/dL (3.4-5.0); ALKALINE PHOSPHATASE 97 Units/L (46-116); ASPARTATE AMINO TRANSFERASE 15 Units/L (15-37); BLOOD UREA NITROGEN 18 mg/dL (7-18); CALCIUM 8.9 mg/dL (8.5-10.1); CARBON DIOXIDE 24.2 mmol/L (21-32); CHLORIDE 103 mmol/L (98-107); COR CA(FOR HYPOALB) 9.5 mg/dL (8.5-10.1); COR NA(FOR HYPERGLY) 140 mmol/L (136-145); CREATININE 1.05 mg/dL (0.70-1.30); SODIUM 139 mmol/L (136-145); TOTAL PROTEIN 7.1 g/dL (6.4-8.2); eGFR BLACK RACES > 60 (>60); eGFR NON BLACK RACES > 60 (>60)
[2017-07-12 07:11] LABS: PLATELET MORPHOLOGY COMMENT NORMAL (NORMAL)
--- NOTE | 2017-07-12 07:50 | CT ---
History: Neck swelling upper airway wheezing. Technique: CT neck with IV contrast. Multiple contiguous axial CT images of the neck were obtained fr om skullbase through the thoracic inlet after IV contrast injection. Sagittal coronal reformatted alexia ges were reconstructed. Automated exposure control (AEC) was utilized to adjust the MA and/or kV acco rding to patient size. Comparison:NONE Findings: There is narrowing of the supraglottic larynx, with soft tissue thickening along the posterior wall s uggesting edema. Mild edema of the vocal cords is suggested. Soft tissue thickening along the posteri or aspect of the supraglottic larynx measures up to 1.4 cm. The residual airway lumen at this level m easures 4 mm in diameter. The epiglottis and the aryepiglottic folds appear normal. There is a small amount of debris noted within the vallecula. Uvula appears mildly thickened The parotid glands and the submandibular glands appear unremarkable. Scattered nonspecific bilateral cervical lymph nodes are seen without soft tissue neck mass is demonstrated. There is mucoperiosteal thickening in the ethmoid air cells. There is diffuse mucoperiosteal thickeni ng in the dominant right sphenoid chamber with mild bony wall thickening suggesting chronic sinusitis . The anterior aspect of the aortic arch is dilated measuring 3.6 cm. The aortic arch has not fully inc luded within the [id number] of the examination. There is moderate multilevel degenerative disc disease throughout the cervical spine. There is a post erior disc osteophyte complex at C4-C5 resulting in severe spinal canal stenosis at this level. Impression: 1. Soft tissue thickening along the posterior wall of the supraglottic larynx with mild thickening of the vocal cords. This results in marked narrowing of the supraglottic airway with a residual lumen o f 4 mm. Clinical correlation is required to ensure a patent airway. Findings may be secondary to a la ryngeal edema, perhaps related to laryngohypopharyngeal reflux or other etiologies, however, a small soft tissue mass is not excluded and direct visualization is recommended. ENT consultation suggested. 2. Mild dilatation of the anterior aortic arch measuring at least 3.6 cm in diameter. The entire aort ic arch is not included within the [id number] of the examination. Consider correlation with contra st-enhanced chest CT for further assessment. 3. Paranasal sinus disease as discussed above with findings suggesting chronic sphenoid sinusitis. 4. Severe spinal canal stenosis at C4-C5. 5. Other findings as above. Reported By:
[2017-07-12] MEDS: PEPCID 20 MG IV PREMIX* 20 MG/50 ML BAG IV SCH (09:30)
[2017-07-12] MEDS: NORVASC TAB 5 MG PO SCH (09:31)
[2017-07-12] MEDS: LEVAQUIN PREMIX IV 500 MG 500 MG/100 ML BAG IV SCH (09:31)
[2017-07-12] MEDS: COZAAR PO SCH (09:31)
[2017-07-12] MEDS: NexIUM PO SCH (09:34)
[2017-07-12] MEDS: PULMICORT NEB TX 0.5 MG NEB SCH (09:44)
[2017-07-12] MEDS: BROVANA IN SCH (09:44)
[2017-07-12] MEDS ORDERED: PROTONIX INJ 40 MG VIAL IVP SCH (12:00)
[2017-07-12] MEDS: LEVSIN/MAALOX/LIDOC VISC PO SCH ×2 (12:24→17:10)
[2017-07-12 17:00] VITALS: BP 125/87
[2017-07-12] MEDS: NS 1000 ML 1,000 ML IV SCH (17:00)
== END 2017-07-12 19:40 | disposition short-term general hospital (02) | DRG 313 ==
LOC: ER 14:09 → ICU 18:15 → OBSVTOIN 18:15
PROVIDERS: ADMIT Internal Medicine; ATTEND Internal Medicine
PROC: 3E0234Z Introduction of Serum, Toxoid and Vaccine into Muscle, Percutaneous Approach (ICD-10-PCS; principal; 2017-07-10)
DX: R07.2 Precordial pain (principal); R06.2 Wheezing; R09.02 Hypoxemia; J20.8 Acute bronchitis due to other specified organisms; K21.9 Gastro-esophageal reflux disease without esophagitis; I10 Essential (primary) hypertension; R06.02 Shortness of breath; Z23 Encounter for immunization
CPT/HCPCS: 36415; 36600; 70491; 71010; 71275; 80053; 80061; 81001; 82150; 82550; 82553; 82803; 83690; 83880; 84484; 85025; 85378; 87070; 87205; 93005; 93010; 94640; 96365; 96374; 96375; 99284; A4222; C9113; S0028; J1956; J2270; J2405; J2920; J2930; J7620; J7626

== ENCOUNTER 2022-12-16 19:27 | Observation (INO) ==
--- NOTE | 2022-12-16 19:48 | EKG ---
Test Reason : CP Blood Pressure : */* mmHG Vent. Rate : 99 BPM Atrial Rate : 99 BPM P-R Int : 144 ms QRS Dur : 80 ms QT Int : 334 ms P-R-T Axes : 46 -1 64 degrees QTc Int : 428 ms Normal sinus rhythm Normal ECG No previous ECGs available Confirmed by Antoni Garces ([id number]) on 12/18/2022 8:08:12 AM Referred By: Confirmed By: Antoni Garces
[2022-12-16] MEDS ORDERED: PEPCID 20 MG VIAL ONE (19:49)
[2022-12-16] MEDS ORDERED: PEPCID 20 MG VIAL IVP ONE (19:50)
[2022-12-16] MEDS ORDERED: MORPHINE SULFATE INJ 4 MG IVP ONE (19:56)
[2022-12-16] MEDS ORDERED: MORPHINE SULFATE INJ 4 MG ONE (19:56)
[2022-12-16] MEDS ORDERED: ZOFRAN INJ 4 MG VIAL IVP ONE (19:56)
--- NOTE | 2022-12-16 19:56 | DR.ABDMALE ---
HPI Time seen Time Seen by Provider: 12/16/22 19:54 PCP Primary Care Physician: JORGE ASTUDILLO HPI comment HPI Comment: PATIENT IS 52YR OLD MALE IN ER WITH SEVERE SHARP 10/10 ABDOMINAL PAIN . PAIN STARTED SUDDENLY THIS AM AND GOT WORSE TONIGHT. NAUSEATED BUT NO VOMITING. DENIES FEVER OR DYSURIA. HISTORY GERD. DENIES DIARRHEA. Complaint Chief Complaint Doctors Comments: UPPER ABDOMINAL PAIN TIMES SINCE THIS AM. WORSE TONIGHT. Chief Complaint:: PT C/O EPIGASTRIC PAIN THAT RADIATES TO HIS BACK. STARTED THIS AM, WORSE NOW. COVID-19 Coronavirus risk:travel/contact w/high risk person: No Has patient experienced Coronavirus symptoms: No Reviewed Nurses Notes Review: Yes Mode of arrival Mode of Arrival: Ambulatory Timing Onset of Chief Complaint: 12/16/22 PMH PMH Past Medical History: Yes Past Medical History: Asthma, GERD and Hypertension Past Surgical History: Yes Surgical History: Ortho Surgery and Tonsillectomy Family History History of Family Medical Conditions: Yes Family Medical History: Hypertension Social History Alcohol Use: Rarely Do you use any recreational Drugs:: No Lives With: Family Lives Where: Home Travel Risk Coronavirus risk:travel/contact w/high risk person: No Has patient experienced Coronavirus symptoms: No Infectious screening In the last 2 months have you had wt loss of >10#?: NO Have you had fever, night sweats or hemotysis?: No Have you traveled outside the country in the last 6 months?: No Isolation: Standard ROS Review of Systems Constitutional: No Symptoms Reported; negative Fever, Weakness or Fatigue Eyes: No Symptoms Reported ENTM: No Symptoms Reported Respiratoy: No Symptoms Reported; negative Moist Cough or Short of Breath Cardiovascular: No Symptoms Reported and Edema; negative Chest Pain Gastrointestinal/Abdominal: Abdominal Pain and Nausea; negative Diarrhea or Vomiting Genitourinary: No Symptoms Reported; negative Dysuria Neurological: No Symptoms Reported; negative Headache or Dizziness Musculoskeletal: No Symptoms Reported; negative Muscle Pain Integumentary: No Symptoms Reported; negative Rash or Juandice Hematologic/Lymphatic: No Symptoms Reported; negative Easy Bruising Endocrine: No Symptoms Reported; negative Increased Thirst or Increased Urine Psychiatric: No Symptoms Reported All Other Systems: Reviewed and Negative PE Vital Signs Vital Signs: Temp Pulse Resp BP BP Pulse Ox O2 Del Method 07/12/17 16:00 125/87 12/17/22 00:30 81 15 97 12/17/22 00:30 155/98 12/17/22 00:15 71 15 94 L 12/17/22 00:00 78 17 95 12/17/22 00:00 143/85 12/16/22 23:45 81 16 97 12/16/22 23:30 73 17 94 L 12/16/22 23:30 135/84 12/16/22 23:15 83 19 96 12/16/22 23:00 77 17 96 12/16/22 23:00 133/87 12/16/22 22:45 78 17 96 12/16/22 20:31 17 12/16/22 22:30 87 17 96 12/16/22 22:30 128/74 12/16/22 22:15 78 17 95 12/16/22 22:00 78 17 96 12/16/22 22:00 139/83 12/16/22 21:45 78 17 95 12/16/22 21:30 82 16 96 12/16/22 21:30 137/76 12/16/22 21:15 85 13 97 12/16/22 21:00 85 16 97 12/16/22 21:00 150/84 12/16/22 20:45 87 17 96 12/16/22 20:30 90 13 93 L 12/16/22 20:30 144/73 12/16/22 20:15 91 H 15 95 12/16/22 20:07 93 H 25 H 99 12/16/22 20:07 145/80 12/16/22 20:00 99 H 27 H 99 12/16/22 20:01 20 12/16/22 19:52 96 H 27 H 98 12/16/22 19:52 163/91 12/16/22 19:45 99 H 41 H 98 12/16/22 19:37 102 H 38 H 98 12/16/22 19:27 97.7 F 104 H 20 154/84 97 Room Air General Limitations: No Limitations General Appearance: Alert and In No Apparent Distress Head Head Exam: Normal Inspection and Atraumatic Eyes Eye exam: Normal Appearance; negative Scleral Icterus or Conjunctival Injection ENT ENT Exam: Normal Exam, Normal Oropharynx, Normal External Ear Exam and TM's Normal Bilaterally Neck Neck Exam: Normal Inspection and Trachea Midline; negative Tenderness Chest Chest Inspection: Normal Inspection and Symmetric Chest Wall Rise; negative Tenderness Respiratory Respiratory Exam: Normal Lung Sounds Bilat; negative Accessory Muscle Use, Chest Wall Tenderness or Respiratory Distress Respiratory Exam: Bilateral: Rhonchi Cardiovascular Cardiovascular Exam: Regular Rate, Normal Rhythm and Normal Heart Sounds; negative Systolic Murmur or Diastolic Murmur Abdominal Exam Abdominal Exam: Normal Bowel Sounds, Soft and Tenderness Abdominal Tenderness: Diffuse and Moderate Rectal Rectal Exam: Deferred Back Back Exam: Normal Inspection; negative (R) CVA Tenderness or (L) CVA Tenderness Extremeties Extremities Exam: Normal Inspection and Normal Capillary Refill Exam: Male: Deferred Neurologic Neurological Exam: Alert and Oriented X3; negative Motor Sensory Deficit Psychiatric Psychiatric Exam: Normal Affect and Normal Mood Skin Skin Exam: Intact MDM Differential Diagnosis Differential Diagnosis: Bowel Obstruction, Cholcystitis, Cholelethiasis, Constipation, Gastritus/PUD, Inflammatory BD, Pancreatitis, Urinary tract infection and Urolithiasis COURSE Treatment Treatment: SEE ORDERS DONE WHILE PATIENT WAS IN ER. LABS AND EKG AND XRAY DISCUSSED WITH PATIENT. STILL HAVING SOME SYMPTOMS AND NOT FEEL HE COULD GO HOME. HE WILL BE ADMITTED TO HOSPITAL. Education/Counseling Education/Counseling: Patient Educated On: Diagnosis and Needs for Follow Up ROR Labs Reviewed Laboratory Results Reviewed?: Yes Result Diagrams: 12/18/22 04:13 12/18/22 04:13 Laboratory: WBC 14.2 X10^3/uL (3.6-10.0) H 12/16/22 19:50 RBC 5.15 X10^6/uL (4.7-6.0) 12/16/22 19:50 Hgb 14.8 g/dL (13.5-18.0) 12/16/22 19:50 Hct 43.6 % (42.0-54.0) 12/16/22 19:50 MCV 84.6 fL (80.0-100.0) 12/16/22 19:50 MCH 28.6 pg (27.0-34.0) 12/16/22 19:50 MCHC 33.9 g/dL (33.0-35.0) 12/16/22 19:50 RDW 14.4 % (11.6-16.5) 12/16/22 19:50 Plt Count 430 X10^3/uL (150.0-450.0) 12/16/22 19:50 MPV 6.5 fL (7.4-11.0) L 12/16/22 19:50 Neut % (Auto) 67.7 % (42.0-75.0) 12/16/22 19:50 Lymph % (Auto) 21.1 % (21.0-51.0) 12/16/22 19:50 [place] % (Auto) 10.2 % (0.0-13.0) 12/16/22 19:50 Eos % (Auto) 0.1 % (0.9-2.9) L 12/16/22 19:50 Baso % (Auto) 0.9 % (0.2-1.0) 12/16/22 19:50 Neut # (Auto) 9.6 x10^3/uL (2.2-4.8) H 12/16/22 19:50 Lymph # (Auto) 3.0 X10^3/uL (1.3-2.9) H 12/16/22 19:50 [place] # (Auto) 1.5 x10^3/uL (0.3-0.8) H 12/16/22 19:50 Eos # (Auto) 0.0 x10^3/uL (0.0-0.2) 12/16/22 19:50 Baso # (Auto) 0.1 X10^3/uL (0.0-0.1) 12/16/22 19:50 Absolute Nucleated RBC 0.0 /100WBC 12/16/22 19:50 D-Dimer 0.52 ug/ml (0.0-0.57) 12/16/22 19:50 Sodium 139 mmol/L (136-145) 12/16/22 19:50 Corrected Sodium 139 mmol/L (136-145) 12/16/22 19:50 Potassium 3.4 mmol/L (3.5-5.1) L 12/16/22 19:50 Chloride 100 mmol/L (98-107) 12/16/22 19:50 Carbon Dioxide 28.4 mmol/L (21-32) 12/16/22 19:50 BUN 14 mg/dL (7-18) 12/16/22 19:50 Creatinine 0.90 mg/dL (0.70-1.30) 12/16/22 19:50 Est GFR (MDRD) Af Amer > 60 (>60) 12/16/22 19:50 Est GFR (MDRD) Non-Af > 60 (>60) 12/16/22 19:50 Glucose 117 mg/dL (65-99) H 12/16/22 19:50 Calcium 8.6 mg/dL (8.5-10.1) 12/16/22 19:50 Corrected Calcium TNP 12/16/22 19:50 Total Bilirubin 1.20 mg/dL (0.2-1.0) H 12/16/22 19:50 AST 83 Units/L (15-37) H 12/16/22 19:50 ALT 69 Units/L (12-78) 12/16/22 19:50 Alkaline Phosphatase 136 Units/L (46-116) H 12/16/22 19:50 Creatine Kinase 106 Units/L (39-308) 12/16/22 19:50 Troponin I High Sens 6.2 ng/L (4.0-60.0) 12/16/22 22:06 Total Protein 7.5 g/dL (6.4-8.2) 12/16/22 19:50 Albumin 3.7 g/dL (3.4-5.0) 12/16/22 19:50 Globulin 3.8 g/dL (2.5-4.5) 12/16/22 19:50 Albumin/Globulin Ratio 1.0 Ratio (1.1-2.1) L 12/16/22 19:50 Amylase 60 Units/L (25-115) 12/16/22 19:50 Lipase 140 Units/L (73-393) 12/16/22 19:50 Opioid Opioid Risk Tool Age (Vickey box if 16-45): No History of Preadolescent Sexual Abuse: No Total: 0 Total Score Risk Category: Low Risk Copyright: Darrick PRESTON predicting aberrant behaviors Discharge Plan Diagnosis Discharge Problem: Acute epigastric pain, Gall bladder disease Discharge Plan Patient Disposition: ADMITTED INPATIENT Condition: Stable
[2022-12-16] MEDS ORDERED: ZOFRAN INJ 4 MG VIAL ONE (19:57)
[2022-12-16 20:02] LABS: BASOPHILS # (AUTO) 0.1 X10^3/uL (0.0-0.1); BASOPHILS % (AUTO) 0.9 % (0.2-1.0); EOSINOPHILS % (AUTO) 0.1 % (0.9-2.9); HEMATOCRIT 43.6 % (42.0-54.0); HEMOGLOBIN 14.8 g/dL (13.5-18.0); LYMPHOCYTES % (AUTO) 21.1 % (21.0-51.0); MEAN CORPUSCULAR HEMOGLOBIN 28.6 pg (27.0-34.0); MEAN CORPUSCULAR HGB CONC 33.9 g/dL (33.0-35.0); MEAN CORPUSCULAR VOLUME 84.6 fL (80.0-100.0); MEAN PLATELET VOLUME 6.5 fL (7.4-11.0); MONOCYTES # (AUTO) 1.5 x10^3/uL (0.3-0.8); MONOCYTES % (AUTO) 10.2 % (0.0-13.0); NEUTROPHILS # (AUTO) 9.6 x10^3/uL (2.2-4.8); NEUTROPHILS % (AUTO) 67.7 % (42.0-75.0); PLATELET COUNT 430 X10^3/uL (150.0-450.0); RED BLOOD COUNT 5.15 X10^6/uL (4.7-6.0); RED CELL DISTRIBUTION WIDTH 14.4 % (11.6-16.5); WHITE BLOOD COUNT 14.2 X10^3/uL (3.6-10.0)
[2022-12-16 20:17] LABS: ALANINE AMINOTRANSFERASE 69 Units/L (12-78); ALBUMIN 3.7 g/dL (3.4-5.0); ALKALINE PHOSPHATASE 136 Units/L (46-116); ASPARTATE AMINO TRANSFERASE 83 Units/L (15-37); BLOOD UREA NITROGEN 14 mg/dL (7-18); CALCIUM 8.6 mg/dL (8.5-10.1); CARBON DIOXIDE 28.4 mmol/L (21-32); CHLORIDE 100 mmol/L (98-107); COR NA(FOR HYPERGLY) 139 mmol/L (136-145); CREATINE KINASE 106 Units/L (39-308); GLUCOSE 117 mg/dL (65-99); POTASSIUM 3.4 mmol/L (3.5-5.1); SODIUM 139 mmol/L (136-145); TOTAL PROTEIN 7.5 g/dL (6.4-8.2); eGFR NON BLACK RACES > 60 (>60)
[2022-12-16 21:35] LABS: AMYLASE 60 Units/L (25-115); LIPASE 140 Units/L (73-393)
--- NOTE | 2022-12-16 23:06 | CT ---
HISTORYPT C/O EPIGASTRIC AND CHEST PAIN THAT RADIATES TO HIS BACK. STARTED THIS AM, WORSE NOW.STUDYCHEST W/O CONCOMPARISONNoneTECHNIQUEMultiple axial images of the chest were obtained from the thoracic inlet to the upper abdomen without the administration of IV contrast. Dose reduction techniques including Automated Exposure Control (AEC) and adjustment of mA and kV were utilized.FINDINGSSensitivity is reduced without intravenous contrast. AP dimension of the ascending aorta 4.1 centimeters.Minimal calcified plaque is visible within the LAD. The heart size is normal without pericardial effusion.Limited evaluation the upper abdomen demonstrates food material within the stomach. The gallbladder is mildly distended.A few shotty mediastinal lymph nodes are present with a sales representative printing supplies node measuring about 10 millimeters short axis dimension.The lungs are clear. No suspicious bony lesion.IMPRESSIONNo acute process detected.Please note this examination would be insensitive for possible vascular pathology.Electronically signed by: Micky Hogue (Dec 16, 2022 23:05:26)
[2022-12-17] MEDS ORDERED: ZOFRAN INJ 4 MG VIAL IVP PRN (00:56)
--- NOTE | 2022-12-17 01:18 | RAD ---
HISTORYPT C/O EPIGASTRIC PAIN THAT RADIATES TO HIS BACK. STARTED THIS AM, WORSE NOW.STUDYCHEST, 1 [id number] single frontal view of the chest was obtained.FINDINGSThere are multiple EKG leads and wires seen overlying the patient. The heart is normal in size. There is no focal infiltrate. There is no effusion. There is no pneumothorax. The osseous structures are intact.IMPRESSIONNo focal infiltrate or effusion.Electronically signed by: Manuela Ventura (Dec 17, 2022 01:16:36)
[2022-12-17] MEDS: NS 1,000 ML IV 1,000 ML IV SCH ×3 (01:30→20:26)
[2022-12-17 01:58] VITALS: BMI 36.5
[2022-12-17 05:26] LABS: BASOPHILS # (AUTO) 0.1 X10^3/uL (0.0-0.1); BASOPHILS % (AUTO) 0.8 % (0.2-1.0); EOSINOPHILS % (AUTO) 0.1 % (0.9-2.9); HEMATOCRIT 39.4 % (42.0-54.0); HEMOGLOBIN 13.6 g/dL (13.5-18.0); LYMPHOCYTES # (AUTO) 2.1 X10^3/uL (1.3-2.9); MEAN CORPUSCULAR HEMOGLOBIN 29.1 pg (27.0-34.0); MEAN CORPUSCULAR HGB CONC 34.4 g/dL (33.0-35.0); MEAN CORPUSCULAR VOLUME 84.7 fL (80.0-100.0); MEAN PLATELET VOLUME 7.2 fL (7.4-11.0); NEUTROPHILS # (AUTO) 6.5 x10^3/uL (2.2-4.8); NEUTROPHILS % (AUTO) 67.1 % (42.0-75.0); PLATELET COUNT 367 X10^3/uL (150.0-450.0); RED BLOOD COUNT 4.66 X10^6/uL (4.7-6.0); RED CELL DISTRIBUTION WIDTH 14.1 % (11.6-16.5); WHITE BLOOD COUNT 9.7 X10^3/uL (3.6-10.0)
[2022-12-17 05:53] LABS: ALANINE AMINOTRANSFERASE 123 Units/L (12-78); ALBUMIN 3.1 g/dL (3.4-5.0); ALKALINE PHOSPHATASE 145 Units/L (46-116); AMYLASE 47 Units/L (25-115); ASPARTATE AMINO TRANSFERASE 147 Units/L (15-37); BLOOD UREA NITROGEN 12 mg/dL (7-18); CALCIUM 8.1 mg/dL (8.5-10.1); CARBON DIOXIDE 28.3 mmol/L (21-32); CHLORIDE 102 mmol/L (98-107); COR CA(FOR HYPOALB) 8.8 mg/dL (8.5-10.1); CREATININE 0.85 mg/dL (0.70-1.30); GLUCOSE 85 mg/dL (65-99); LIPASE 104 Units/L (73-393); POTASSIUM 3.4 mmol/L (3.5-5.1); SODIUM 139 mmol/L (136-145); TOTAL PROTEIN 6.5 g/dL (6.4-8.2); eGFR NON BLACK RACES > 60 (>60)
[2022-12-17] MEDS ORDERED: KLOR-CON PO PRN (06:21)
[2022-12-17] MEDS ORDERED: MICRO K EXTEN CAP 10 MEQ PO PRN (06:21)
[2022-12-17] MEDS ORDERED: POTASSIUM CHL 60 MEQ/NS 0.45% 500 ML IV PRN (06:21)
[2022-12-17] MEDS ORDERED: POTASSIUM CHLORIDE LIQ 20 MEQ UDC PO PRN (06:21)
[2022-12-17] MEDS ORDERED: POTASSIUM CHL 40 MEQ/NS 0.45% 500 ML IV PRN (06:21)
[2022-12-17] MEDS ORDERED: BENTYL I.M. INJ 10 MG IM NR (08:46)
[2022-12-17] MEDS: PROTONIX INJ 40 MG VIAL IVP SCH ×2 (10:02→20:24)
[2022-12-17] MEDS: MAGNESIUM SULFATE 1 GRAM/100 mL PREMIX 1 G/100 ML BAG IV PRN ×2 (10:02→12:48)
[2022-12-17] MEDS: MORPHINE SULFATE INJ 2 MG INJ IVP PRN (10:14)
[2022-12-17] MEDS: K-DUR TAB 20 MEQ PO PRN (12:46)
[2022-12-17] MEDS: LASIX PO SCH (12:46)
[2022-12-17] MEDS: NORVASC TAB 10 MG PO SCH (12:47)
[2022-12-17] MEDS: COZAAR PO SCH (12:47)
--- NOTE | 2022-12-17 14:26 | US ---
HISTORYAcute abdominal painSTUDYGALL BLADDERCOMPARISONNone availableTECHNIQUEMultiple grant scale, duplex and color flow Doppler images of the right upper quadrant was performedFINDINGSThe liver demonstrate diffuse increased echogenicity, the right lobe measures 16.6 centimeters. There is color Doppler flow in the arianna vein l, hepatic artery and hepatic vein with directed flow.The gallbladder is normal. No gallstones. The common bile duct measures 4.5 millimeters. The right kidney measures 12.6 x 6.6 x 6.5 centimeters cortex of 2.5 centimeter, no hydronephrosis with normal echogenicity.The IVC is patent. There is limited visualization of the pancreas. No fluid in the right upper quadrant.IMPRESSIONNo cholelithiasis or cholecystitis.Electronically signed by: Rubi Anderson (Dec 17, 2022 14:24:00)
[2022-12-17] MEDS ORDERED: LEVSIN/MAALOX/LIDOC VISC PO PRN (18:10)
--- NOTE | 2022-12-17 18:16 | DR.H&P ---
H&P - History & Physical for Day of: H&P Date: 12/17/22 - Chief Complaint Chief Complaint: ABDOMINAL PAIN, N/V - History of Present Illness History of Present Illness: PATIENT IS 52YR OLD MALE IN ER WITH SEVERE SHARP 10/10 ABDOMINAL PAIN . PAIN STARTED SUDDENLY THIS AM AND GOT WORSE TONIGHT. NAUSEATED BUT WITH VOMITING X 1, NO DIARRHEA. DENIES FEVER OR DYSURIA. HISTORY GERD, HTN, TYPE 2 DM, OA AND ASTHMA. 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 PT ADMITTED FOR TREATMENT AND EVALUATION OF ACUTE ILLNESS. - Past Medical History Past Medical History: Arthritis, Asthma, Diabetes, GERD, Hypertension - Past Surgical History Surgical History: Ortho Surgery, Tonsillectomy - Family History Family Medical History: Diabetes Mellitus, Hypertension - Social History Does patient currently use any type of tobacco product: No Have you used tobacco products in the last 12 months: No Type of Tobacco Use: None Does any household member use tobacco: No Alcohol Use: None - Medications Home Medications: Home Medications Medication Instructions Recorded Confirmed Type amlodipine 10 mg tablet 1 tab PO QDAY 12/16/22 12/16/22 History benralizumab 30 mg/mL subcutaneous ea subcut 12/16/22 History auto-injector (Fasenra Pen) furosemide 40 mg tablet 1 tab PO QDAY 12/16/22 12/16/22 History losartan 100 mg tablet 1 tab PO QDAY 12/16/22 12/16/22 History montelukast 10 mg tablet 1 tab PO QDAY 12/16/22 12/16/22 History potassium chloride 20 mEq 1 tab PO QDAY 12/16/22 12/16/22 History tablet,extended release(part/cryst) tirzepatide 5 mg/0.5 mL 1 ea subcut WEEKLY 12/16/22 12/17/22 History subcutaneous pen injector (Mounjaro) - Review of Systems Constitutional: Weakness, Malaise Eyes: No Symptoms Reported ENT: No Symptoms Reported Respiratory: SOB with Excertion Cardiovascular: Edema Gastrointestinal: Nausea, Vomiting, Abdominal Pain Genitourinary: No Symptoms Reported Musculoskeletal: Back Pain Skin: No Symptoms Reported Neurological: No Symptoms Reported - Physical Exam Vital Signs: Temperature 98.2 F Temperature 97.7 F Pulse Rate [Left] 79 Pulse Rate 78 Pulse Rate 104 Respiratory Rate 18 Respiratory Rate 20 Blood Pressure [Left Arm] 133/66 Blood Pressure 155/98 Blood Pressure 154/84 O2 Sat by Pulse Oximetry 95 O2 Sat by Pulse Oximetry 97 Oriented: Normal Eyes: Normal Ear: Normal Nose: Normal Throat: Normal Respiratory: RLL Diminished, LLL Diminished Cardiovascular: Edema : Normal Auscultation: Bowel Sounds: Increased Tenderness: RUQ, LUQ, Epigastric Skin: Decreased Turgur Musculoskeletal: Back:Thoracic, Back:Lumbar Psychiatric: Anxiety Affect: Anxious Speech Pattern: Clear, Appropriate - Assessment/Plan (1) Acute epigastric pain Status: Acute Plan: ADMIT, IV HYDRATION, NPO. GALLBLADDER US AND HIDA. BID PPI THERAPY. IM BENTYL, HPYLORI STOOL, OCCULT STOOL. NAUSEA CONTROL, BP CONTROL. CT CHEST OBTAINED ON ADMISSION (2) Gall bladder disease Status: Acute (3) Chest pain Qualifiers: Chest pain type: precordial pain Qualified Code(s): R07.2 - Precordial pain Status: Acute - Allergies Allergies/Adverse Reactions: Allergies Allergy/AdvReac Type Severity Reaction Status Date / Time Cephalosporins Allergy Severe ANAPHALEXIS Verified 12/16/22 19:57 REACTION
[2022-12-17] MEDS ORDERED: COLACE CAP 100 MG PO PRN (19:50)
[2022-12-17] MEDS: REGLAN INJ 10 MG VIAL IVP SCH (20:23)
[2022-12-18] MEDS: REGLAN INJ 10 MG VIAL IVP SCH (01:50)
[2022-12-18 05:28] LABS: BASOPHILS # (AUTO) 0.1 X10^3/uL (0.0-0.1); BASOPHILS % (AUTO) 0.8 % (0.2-1.0); EOSINOPHILS % (AUTO) 0.4 % (0.9-2.9); HEMOGLOBIN 13.4 g/dL (13.5-18.0); LYMPHOCYTES # (AUTO) 1.6 X10^3/uL (1.3-2.9); LYMPHOCYTES % (AUTO) 18.7 % (21.0-51.0); MEAN CORPUSCULAR HEMOGLOBIN 29.3 pg (27.0-34.0); MEAN CORPUSCULAR HGB CONC 34.4 g/dL (33.0-35.0); MEAN CORPUSCULAR VOLUME 85.2 fL (80.0-100.0); MEAN PLATELET VOLUME 7.5 fL (7.4-11.0); MONOCYTES # (AUTO) 0.7 x10^3/uL (0.3-0.8); MONOCYTES % (AUTO) 8.6 % (0.0-13.0); NEUTROPHILS % (AUTO) 71.5 % (42.0-75.0); PLATELET COUNT 364 X10^3/uL (150.0-450.0); RED BLOOD COUNT 4.58 X10^6/uL (4.7-6.0); RED CELL DISTRIBUTION WIDTH 14.6 % (11.6-16.5); WHITE BLOOD COUNT 8.4 X10^3/uL (3.6-10.0)
[2022-12-18 05:37] LABS: ALANINE AMINOTRANSFERASE 204 Units/L (12-78); ALBUMIN 3.1 g/dL (3.4-5.0); ALKALINE PHOSPHATASE 212 Units/L (46-116); AMYLASE 44 Units/L (25-115); ASPARTATE AMINO TRANSFERASE 121 Units/L (15-37); BLOOD UREA NITROGEN 12 mg/dL (7-18); CALCIUM 7.9 mg/dL (8.5-10.1); CARBON DIOXIDE 29.2 mmol/L (21-32); CHLORIDE 102 mmol/L (98-107); COR CA(FOR HYPOALB) 8.6 mg/dL (8.5-10.1); CREATININE 0.87 mg/dL (0.70-1.30); GLUCOSE 82 mg/dL (65-99); LIPASE 94 Units/L (73-393); POTASSIUM 3.5 mmol/L (3.5-5.1); SODIUM 140 mmol/L (136-145); TOTAL PROTEIN 6.5 g/dL (6.4-8.2); eGFR NON BLACK RACES > 60 (>60)
[2022-12-18] MEDS: NS 1,000 ML IV 1,000 ML IV SCH ×2 (07:55→17:45)
[2022-12-18] MEDS: PROTONIX INJ 40 MG VIAL IVP SCH ×2 (09:49→20:19)
--- NOTE | 2022-12-18 12:58 | RAD ---
HISTORYSOB, ABD PAIN. Chest pain.STUDYCHEST, 1 VIEWCOMPARISONChest radiograph dated December 16, 2022.FINDINGSThe trachea is midline. The cardiac silhouette is unremarkable.The lungs are clear without focal infiltrate or effusion.The bony thorax is stable.IMPRESSIONNo acute cardiopulmonary findings or changes.Electronically signed by: LINA CLEMENTE III (Dec 18, 2022 12:57:01)
--- NOTE | 2022-12-18 14:36 | NM ---
HISTORY: Abdominal pain. RUQ pain, nausea.EXAM: Nuclear Medicine HIDA ExamTechnique: Multiple scintigraphic images of the abdomen were obtained the intravenous administration of 5.7 mCi of technetium labeled [Choletec]. Following distention of the gallbladder with radiotracer a bottle of Ensure was given.An estimated gallbladder ejection fraction was calculated based on this physiologic response.Findings:Homogeneous uptake of radiotracer is seen throughout the liver. The intrabiliary ductal system is observed normally.The common hepatic and common bile duct grossly appear unremarkable with normal biliary-bowel transit. The gallbladder is observed to fill normally without evidence for acute cholecystitis. After the administration of ensure, however, an abnormally low gallbladder ejection fraction of 6% (normal > 35%) is observed. Although many etiologies (certain medications, cholangitis, pancreatitis, sepsis, etc.) can account for a low gallbladder ejection fraction, in the outpatient setting, the most common etiology is chronic cholecystitis.IMPRESSION:1. Hepatobiliary imaging study demonstrates no evidence for hepatic dysfunction, acute cholecystitis, or biliary leak/biloma formation.2. Low gallbladder ejection fraction of 6%, possibly reflecting chronic cholecystitis, as discussed above.Electronically signed by: LINA CLEMENTE III (Dec 18, 2022 14:34:54)
[2022-12-18] MEDS: COZAAR PO SCH (17:44)
[2022-12-18] MEDS: LASIX PO SCH (17:45)
[2022-12-18] MEDS: NORVASC TAB 10 MG PO SCH (17:45)
[2022-12-18] MEDS: TORADOL 15 MG VIAL IVP PRN (17:45)
[2022-12-18] MEDS: K-DUR TAB 20 MEQ PO PRN (18:26)
--- NOTE | 2022-12-18 22:48 | DR.CONSULT ---
CONSULT Consultation for Day of: Date: 12/18/22 Chief Complaint Chief Complaint: RUQ pain with nausea and vomiting with eating . Had gallbladder ultrasound showing no gallstones and no cholecystitis. HIDA scan shows significantly low ejection fraction of 6 % consistent with biliary dyskinesia . Allergies Allergies Allergy/AdvReac Type Severity Reaction Status Date / Time Cephalosporins Allergy Severe ANAPHALEXIS Verified 12/16/22 19:57 REACTION History of Present Illness History of Present Illness: as above Past Medical History Past Medical History: Arthritis, Asthma, Diabetes, GERD and Hypertension Past Surgical History Surgical History: Ortho Surgery and Tonsillectomy Family History Family Medical History: Diabetes Mellitus and Hypertension Social History Does patient currently use any type of tobacco product: No Have you used tobacco products in the last 12 months: No Type of Tobacco Use: None Does any household member use tobacco: No Alcohol Use: None Medications Home Medications: Cephalosporins Allergy (Severe, Verified 12/16/22 19:57) ANAPHALEXIS REACTION CONTINUE taking the following medications amlodipine 10 mg tablet 1 tab PO QDAY 12/16/22 [History] benralizumab 30 mg/mL subcutaneous auto-injector (Fasenra Pen) 30 mg subcut Q8W 12/16/22 [History] furosemide 40 mg tablet 1 tab PO QDAY 12/16/22 [History] losartan 100 mg tablet 1 tab PO QDAY 12/16/22 [History] montelukast 10 mg tablet 1 tab PO QDAY 12/16/22 [History] potassium chloride 20 mEq tablet,extended release(part/cryst) 1 tab PO QDAY 12/16/22 [History] tirzepatide 5 mg/0.5 mL subcutaneous pen injector (Mounjaro) 1 ea subcut WEEKLY 12/16/22 [History] Review of Systems Constitutional: See HPI Eyes: No Symptoms Reported ENT: No Symptoms Reported Respiratory: Other (history of asthma requiring steroids ) Cardiovascular: No Symptoms Reported Gastrointestinal: See HPI Genitourinary: No Symptoms Reported Musculoskeletal: No Symptoms Reported Skin: No Symptoms Reported Neurological: No Symptoms Reported Physical Exam Vital Signs: Temperature 98.0 F Temperature 97.7 F Pulse Rate [Left] 74 Pulse Rate 78 Pulse Rate 104 Respiratory Rate 21 Respiratory Rate 20 Blood Pressure [Left Arm] 150/84 Blood Pressure 155/98 Blood Pressure 154/84 O2 Sat by Pulse Oximetry 95 O2 Sat by Pulse Oximetry 97 Hgb=13.4,K=3.5, Cr=0.87,, WBC=8.4, mild elevation of LFTs including Total bili=1.2 Oriented: Normal, Time, Person and Place Eyes: Normal Ear: Normal Nose: Normal Throat: Normal Respiratory: Clear Throughout Cardiovascular: Normal : Normal Auscultation: Bowel Sounds: Normal Palpation: Normal Tenderness: RUQ (mild) Skin: Normal Musculoskeletal: Normal Psychiatric: Normal Mood Description: Appropriate Affect: Normal Speech Pattern: Clear Plan (1) Acute epigastric pain: Status: Acute (2) Gall bladder disease: Status: Acute Plan: Plan laparoscopic cholecystectomy. Risks of bleeding, infection , bowel injury and bile duct injury discussed with the patient including my personal risk of bile duct injury of 1 in 1999. He agrees to proceed. (3) Chest pain: Status: Acute Qualifiers: Chest pain type: precordial pain Qualified Code(s): R07.2 - Precordial pain
[2022-12-19] MEDS: NS 1,000 ML IV 1,000 ML IV SCH ×2 (05:01→13:05)
[2022-12-19 05:41] LABS: BASOPHILS # (AUTO) 0.1 X10^3/uL (0.0-0.1); EOSINOPHILS # (AUTO) 0.1 x10^3/uL (0.0-0.2); EOSINOPHILS % (AUTO) 0.8 % (0.9-2.9); HEMATOCRIT 38.8 % (42.0-54.0); HEMOGLOBIN 13.3 g/dL (13.5-18.0); LYMPHOCYTES # (AUTO) 2.1 X10^3/uL (1.3-2.9); LYMPHOCYTES % (AUTO) 23.4 % (21.0-51.0); MEAN CORPUSCULAR HEMOGLOBIN 29.4 pg (27.0-34.0); MEAN CORPUSCULAR HGB CONC 34.4 g/dL (33.0-35.0); MEAN CORPUSCULAR VOLUME 85.5 fL (80.0-100.0); MEAN PLATELET VOLUME 7.4 fL (7.4-11.0); MONOCYTES # (AUTO) 0.9 x10^3/uL (0.3-0.8); MONOCYTES % (AUTO) 9.6 % (0.0-13.0); NEUTROPHILS # (AUTO) 5.8 x10^3/uL (2.2-4.8); NEUTROPHILS % (AUTO) 65.2 % (42.0-75.0); PLATELET COUNT 364 X10^3/uL (150.0-450.0); RED BLOOD COUNT 4.54 X10^6/uL (4.7-6.0); RED CELL DISTRIBUTION WIDTH 14.6 % (11.6-16.5); WHITE BLOOD COUNT 8.9 X10^3/uL (3.6-10.0)
[2022-12-19 05:48] LABS: ALANINE AMINOTRANSFERASE 170 Units/L (12-78); ALBUMIN 3.2 g/dL (3.4-5.0); ALKALINE PHOSPHATASE 210 Units/L (46-116); ASPARTATE AMINO TRANSFERASE 69 Units/L (15-37); BLOOD UREA NITROGEN 12 mg/dL (7-18); CALCIUM 8.1 mg/dL (8.5-10.1); CARBON DIOXIDE 28.5 mmol/L (21-32); CHLORIDE 102 mmol/L (98-107); COR CA(FOR HYPOALB) 8.7 mg/dL (8.5-10.1); CREATININE 0.84 mg/dL (0.70-1.30); GLUCOSE 86 mg/dL (65-99); POTASSIUM 3.3 mmol/L (3.5-5.1); SODIUM 140 mmol/L (136-145); TOTAL PROTEIN 6.7 g/dL (6.4-8.2); eGFR NON BLACK RACES > 60 (>60)
[2022-12-19] MEDS: K-RIDER 10 MEQ/NS 100 ML 10 MEQ/100 ML BAG IV PRN (06:18)
[2022-12-19] MEDS: PROTONIX INJ 40 MG VIAL IVP SCH ×2 (08:10→20:46)
[2022-12-19] MEDS: COZAAR PO SCH (08:11)
[2022-12-19] MEDS: NORVASC TAB 10 MG PO SCH (08:11)
[2022-12-19] MEDS: LASIX PO SCH (08:11)
[2022-12-19] MEDS: TORADOL 15 MG VIAL IVP PRN (12:02)
[2022-12-19] MEDS: MORPHINE SULFATE INJ 2 MG INJ IVP PRN (15:55)
[2022-12-20] MEDS: NS 1,000 ML IV 1,000 ML IV SCH (01:47)
[2022-12-20 05:22] LABS: BASOPHILS # (AUTO) 0.1 X10^3/uL (0.0-0.1); BASOPHILS % (AUTO) 0.7 % (0.2-1.0); EOSINOPHILS # (AUTO) 0.1 x10^3/uL (0.0-0.2); EOSINOPHILS % (AUTO) 0.9 % (0.9-2.9); HEMATOCRIT 39.9 % (42.0-54.0); HEMOGLOBIN 13.7 g/dL (13.5-18.0); LYMPHOCYTES # (AUTO) 1.9 X10^3/uL (1.3-2.9); MEAN CORPUSCULAR HEMOGLOBIN 29.1 pg (27.0-34.0); MEAN CORPUSCULAR HGB CONC 34.2 g/dL (33.0-35.0); MEAN CORPUSCULAR VOLUME 85.2 fL (80.0-100.0); MEAN PLATELET VOLUME 7.3 fL (7.4-11.0); MONOCYTES # (AUTO) 0.8 x10^3/uL (0.3-0.8); MONOCYTES % (AUTO) 9.4 % (0.0-13.0); NEUTROPHILS # (AUTO) 5.3 x10^3/uL (2.2-4.8); PLATELET COUNT 351 X10^3/uL (150.0-450.0); RED BLOOD COUNT 4.69 X10^6/uL (4.7-6.0); RED CELL DISTRIBUTION WIDTH 14.6 % (11.6-16.5)
[2022-12-20 05:30] LABS: ALANINE AMINOTRANSFERASE 174 Units/L (12-78); ALBUMIN 3.2 g/dL (3.4-5.0); ALKALINE PHOSPHATASE 188 Units/L (46-116); ASPARTATE AMINO TRANSFERASE 75 Units/L (15-37); BLOOD UREA NITROGEN 12 mg/dL (7-18); CALCIUM 8.4 mg/dL (8.5-10.1); CARBON DIOXIDE 27.9 mmol/L (21-32); CHLORIDE 99 mmol/L (98-107); CREATININE 0.92 mg/dL (0.70-1.30); GLUCOSE 79 mg/dL (65-99); POTASSIUM 3.2 mmol/L (3.5-5.1); SODIUM 137 mmol/L (136-145); TOTAL PROTEIN 6.8 g/dL (6.4-8.2); eGFR NON BLACK RACES > 60 (>60)
[2022-12-20] MEDS: K-RIDER 10 MEQ/NS 100 ML 10 MEQ/100 ML BAG IV PRN (05:56)
[2022-12-20] MEDS ORDERED: NS 1,000 ML IV 1,000 ML ONE (08:38)
[2022-12-20] MEDS ORDERED: ZEMURON 100 MG VIAL ONE (08:49)
[2022-12-20] MEDS ORDERED: FENTANYL VIAL INJ 250 mcg ONE (08:49)
[2022-12-20] MEDS ORDERED: VERSED ONE (08:49)
[2022-12-20] MEDS ORDERED: DIPRIVAN VIAL 20 ML ONE (08:49)
[2022-12-20] MEDS ORDERED: QUELICIN (OR ANECTINE) ONE (08:49)
[2022-12-20] MEDS ORDERED: PEPCID 20 MG VIAL ONE (08:56)
[2022-12-20] MEDS ORDERED: BRIDION ONE (08:56)
[2022-12-20] MEDS ORDERED: ZOFRAN INJ 4 MG VIAL ONE (08:56)
[2022-12-20] MEDS ORDERED: MARCAINE/EPINEPHRINE ONE (08:58)
[2022-12-20] MEDS ORDERED: CLEOCIN 600 MG IV PREMIX 600 MG/50 ML BAG IV ONE (09:06)
[2022-12-20] MEDS ORDERED: BARHEMSYS INJ IVP PRN (09:31)
[2022-12-20] MEDS ORDERED: BENADRYL INJ 50 MG VIAL IVP PRN (09:31)
[2022-12-20] MEDS ORDERED: REGLAN INJ 10 MG VIAL IVP PRN (09:31)
[2022-12-20] MEDS ORDERED: ZOFRAN INJ 4 MG VIAL IVP PRN (09:31)
[2022-12-20] MEDS ORDERED: SUPRANE ONE (09:46)
--- NOTE | 2022-12-20 09:49 | NOTE.SOAP ---
Soap Note Note for Day of Date of Exam: 12/19/22 Subjective Data Subjective Data: Could not get to his surgery today. Rescheduled for laparoscopic cholecystectomy first thing in the AM. Discussed with the patient in person. Objective Data Temperature: 98.7 F Pulse Rate: 90 Respiratory Rate: 18 Blood Pressure: 169/83 O2 Sat by Pulse Oximetry: 92 Objective Data: milld RUQ tenderness, RUQ pain with meals Assessment Assessment: Laparoscopic cholecystectomy in AM and risks and benefits discussed with the patient and he agrees to proceed. Plan Plan: as above
[2022-12-20] MEDS ORDERED: TORADOL 30 MG VIAL ONE (10:10)
[2022-12-20] MEDS ORDERED: DILAUDID INJ ONE (11:02)
[2022-12-20] MEDS: DILAUDID INJ IVP PRN ×2 (11:03→11:17)
[2022-12-20] MEDS ORDERED: BARHEMSYS INJ ONE ×2 (11:05→11:06)
[2022-12-20 11:45] VITALS: TEMP 98
[2022-12-20] MEDS: TORADOL 15 MG VIAL IVP PRN (11:55)
[2022-12-20 14:10] VITALS: BP 140/82; PULSE 90; O2SAT 97
--- NOTE | 2022-12-20 17:15 | OR.IMMED ---
IMMEDIATE POST-OP NOTE Immediate Post-Op Note Pre-Op Diagnosis: biliary dykinesia Post-Op Diagnosis: same Procedure: laparoscopic cholecystectomy Description of Procedure: see operative summary Surgeon/Bridge Instructor: samara Findings: chronically inflamed gallbladder, with significant adhesions to it. Specimens Removed: gallbladder Estimated Blood Loss: minimal Complications: none Progress Notes: Return to floor, if tolerating diet may discharge home later today. F/u Dr Gaitan 1 week.
--- NOTE | 2022-12-21 11:49 | DR.OPNOTE ---
OP NOTE Pre-Op Diagnosis: Biliary Dyskinesia Post-Op Diagnosis: same Procedure Date Date Of Procedure: 12/20/22 Procedure: PROCEDURE : LAPAROSCOPIC CHOLECYSTECTOMY NARRATIVE: Patient was taken to the operative suite and placed in the supine position. General endotracheal anesthesia induced. The entire abdomen prepped and draped in sterile fashion. Time out for the procedure obtained . Curvilinear 3cm incision made below the umbilicus in the midline and dissection carried down to the midline fascia. Holding sutures of [address] on either side of the midline fascia and the fascia opened with a # 15 knife. Peritoneum was opened with Metzenbaum scissors. The Valerio canula placed in the peritoneum and secured with the holding sutures . The abdomen insufflated to 15 mm of mercury with carbon dioxide. Under direct vision two 5 m trocars placed along the right costal margin and a 5 mm trocar placed in the epigastrium. Patient had evidence of chronic inflammation of the gallbladder as it was covered with omentum . The omentum was taken down bluntly. Gallbladder grasped at the the infundibulum and the fundus and elevated. Dissection carried out in Calot's triangle identifying the cystic duct and cystic artery, i. e. critical view of safety. The cystic duct and cystic artery were clipped proximally and distally and divided . The peritoneum of the gallbladder incised with electrocautery and the gallbladder removed from the liver bed and removed through the infraumbilical port site . The umbilical trocar replaced and the abdomen irrigated and suctioned free.. Surgical cell placed in the liver bed. There was no active bleeding. All trocars removed. The fascia of the initial incision closed with interrupted 0 Vicryl sutures and all incisions closed with interrupted 3-0 Vicryl subcutaneous sutures. Steri strips used to close the skin of all the incisions. A total of 20 cc's of 0.5% Marcaine distributed between the four laparoscopic incisions. Patient extubated and taken to the recovery room in good condition. Type of Anesthesia: General Anesthetic w/ETT Findings: chronically inflamed gallbladder Specimen/Pathology: gallbladder Type of Fluids Used:: Lactated Ringers EBL: minimal Complications:: none Needle/Sponge Count:: correct Disposition/Condition: Pt. tolerated procedure without difficulty. Extubated in the OR and taken to PACU in stable condition.
== END 2022-12-20 15:42 | disposition home or self-care (01) ==
LOC: ICU 19:27 → ER 19:27 → ICU 12-17 00:57
PROVIDERS: ADMIT Internal Medicine; ATTEND Internal Medicine
DX: E83.42 Hypomagnesemia; R10.13 Epigastric pain; E87.6 Hypokalemia; R07.2 Precordial pain; R74.8 Abnormal levels of other serum enzymes; R74.01 Elevation of levels of liver transaminase levels; K82.8 Other specified diseases of gallbladder